=== PATIENT | male | born 1985 | race American Indian/Alaskan Native ===

== ENCOUNTER 2016-11-16 13:13 | Emergency (ER) | payer OTHER ==
[2016-11-16 13:36] VITALS: PULSE 80; RESP 18; O2SAT 98
--- NOTE | 2016-11-16 13:56 | ED PDOC ---
Arrival/HPI - General Historian: Patient - History of Present Illness Time/Duration: Other (1 day) Context: Other (dentist office) - General Chief Complaint: High Blood Pressure Time Seen by Provider: 11/16/16 13:55 - History of Present Illness Narrative History of Present Illness (Text): 11/16/16 13:56 This 31 yo male with pmh HTN, presents to this ED for evaluation of HTN. Patient stated during a routine visit to his dentist, his BP was elevated. Patient was referred to see doctor for HTN. Patient stated he was Dx. HTN "couple" years ago, but he did not take his BP medication. Patient otherwise feels fine on his normal state of health. Patient denies ASKEW, diplopia, dysarthria, weakness, paresthesias, CP, SOB, dizziness, n/v, or abnormal gait. Patient denies other complains. (Radha Kinsey) Past Medical History - Provider Review Nursing Documentation Reviewed: Yes - Infectious Disease Hx of Infectious Diseases: None - Cardiac Hx Hypertension: Yes - Psychiatric Hx Substance Use: No Family/Social History - Physician Review Nursing Documentation Reviewed: Yes Family/Social History: No Known Family HX Smoking Status: Light Smoker < 10 Cigarettes Daily Hx Alcohol Use: Yes Hx Substance Use: No Allergies/Home Meds Allergies/Adverse Reactions: Allergies No Known Allergies Allergy (Verified 11/16/16 13:36) Home Medications: Home Meds Medication Instructions Recorded Confirmed No Known Home Med 11/16/16 11/16/16 Review of Systems - Review of Systems Constitutional: Normal. absent: Fatigue, Weight Change, Fevers Eyes: Normal. absent: Vision Changes, Photophobia, Eye Pain ENT: Normal Respiratory: Normal. absent: SOB, Cough Cardiovascular: Normal. absent: Chest Pain, Palpitations, Edema, Calf Pain, MUELLER , Orthopnea, Syncope Gastrointestinal: Normal. absent: Abdominal Pain, Nausea, Vomiting Genitourinary Male: Normal. absent: Dysuria, Frequency, Hematuria Musculoskeletal: Normal. absent: Arthralgias, Back Pain, Neck Pain, Joint Swelling, Myalgias Skin: Normal. absent: Rash, Pruritis, Skin Lesions Neurological: Normal. absent: Headache, Dizziness, Focal Weakness, Gait Changes , Speech Changes, Facial Droop, Disequilibrium, Seizure Endocrine: Normal. absent: Diaphoresis Hemo/Lymphatic: Normal Psychiatric: Normal Physical Exam Temperature: Afebrile Blood Pressure: Normal Pulse: Regular Respiratory Rate: Normal Appearance: Positive for: Well-Appearing, Non-Toxic, Comfortable Pain Distress: None Mental Status: Positive for: Alert and Oriented X 3 - Systems Exam Head: Present: Atraumatic, Normocephalic Pupils: Present: PERRL Extroacular Muscles: Present: EOMI Conjunctiva: Present: Normal Ears: Present: Normal, NORMAL TM, Normal Canal. No: Erythema, TM Bulging, Fluid , TM Perf Mouth: Present: Moist Mucous Membranes Pharnyx: Present: Normal. No: ERYTHEMA, EXUDATE, TONSILS ENLARGED Nose (External): Present: Atraumatic Nose (Internal): Present: Normal Inspection. No: Rhinorrhea Neck: Present: Normal Range of Motion, Trachea Midline. No: Meningeal Signs, MIDLINE TENDERNESS, Lymphadenopathy Respiratory/Chest: Present: Clear to Auscultation, Good Air Exchange. No: Respiratory Distress, Accessory Muscle Use, Wheezes, Decreased Breath Sounds, Rales, Retracting, Rhonchi, Tachypneic, Tender to Palpation Cardiovascular: Present: Regular Rate and Rhythm, Normal S1, S2. No: Murmurs Abdomen: Present: Normal Bowel Sounds. No: Tenderness, Distention, Peritoneal Signs Back: Present: Normal Inspection. No: CVA Tenderness Upper Extremity: Present: Normal Inspection, Normal ROM, NORMAL PULSES, Neurovascularly Intact, Capillary Refill < 2s. No: Cyanosis, Edema Lower Extremity: Present: Normal Inspection, NORMAL PULSES, Normal ROM, Neurovascularly Intact, Capillary Refill < 2 s. No: Edema, CALF TENDERNESS Neurological: Present: GCS=15, CN II-XII Intact, Speech Normal, Motor Func Grossly Intact, Normal Sensory Function, Normal Cerebellar Funct, Norm Deep Tendon Reflexes, Gait Normal, Memory Normal Skin: Present: Warm, Dry, Normal Color. No: Rashes Psychiatric: Present: Alert, Oriented x 3 Vital Signs Pulse Resp BP Pulse Ox 11/16/16 14:30 158/102 H 11/16/16 13:31 80 18 174/106 H 98 Medical Decision Making Re-evaluation Time: 14:19 Reassessment Condition: Re-examined, Improved ED Course and Treatment: I was available for consultation during PA evaluation. The chart was reviewed by me, and I agree with disposition. The documented history was done by the physician document preparer microfilming. The documented physical exam was done by the physician document preparer microfilming. The documented procedures were done by the physician document preparer microfilming. ( Camilo Mathias) 11/16/16 14:20 Re-evaluation. Patient feels better. Discussed results and plan with patient who expresses understanding. All questions answered and there is agreement with the plan to discharge home with instructions. Patient stable for discharge. Return if symptoms persist or worsen. Patient remained stable during the course of ED visit. Patient denies ant symptoms. Patient is neurologic intact. Denies ASKEW, dizziness, or CP. Denies leg swelling, n/v, or abnormal gait. Patient was recommended to f/u with Dr. Jones, so he can manage his HTN. He understood plan. 11/16/16 14:[address] Mathias ED attending regarding patient chief complains. Patient is asymptomatic. He agrees with above plan, to manage HTN as out-pt with Dr. Jones (Radha Kinsey) Disposition/Present on Arrival - Present on Arrival Any Indicators Present on Arrival: No History of DVT/PE: No History of Uncontrolled Diabetes: No Urinary Catheter: No History of Decub. Ulcer: No History Surgical Site Infection Following: None - Disposition Have Diagnosis and Disposition been Completed?: Yes Disposition Time: 14:23 Patient Plan: Discharge - Disposition Diagnosis: Hypertension Disposition: HOME/ ROUTINE Condition: GOOD Discharge Instructions (ExitCare): Hypertension (ED) Additional Instructions: Call Dr. Jones office today or tomorrow to set up earliest follow up visit to check your blood pressure. Return to emergency if symptoms may arise or worsen Referrals: PCP,NO [Primary Care Provider] - Follow up with primary Everette Jones DO [Staff Provider] - Follow up with primary Forms: WORK NOTE
[2016-11-16 14:31] VITALS: BP 158/102
== END 2016-11-16 14:31 | disposition home or self-care (01) ==
LOC: ED 13:13
DX: I10 Essential (primary) hypertension (principal); F17.210 Nicotine dependence, cigarettes, uncomplicated